=== PATIENT | female | born 1995 | race Native Hawaiian/Other Pacific Islander ===

== ENCOUNTER 2017-09-12 19:02 | Inpatient (IN) | payer MEDICAID ==
[2017-09-12] MEDS ORDERED: LACTATED RINGERS 500 ML IV ONE (20:15)
[2017-09-12] MEDS ORDERED: SUBLIMAZE IV PRN (23:00)
[2017-09-12] MEDS ORDERED: XYLOCAINE 2% INFILTRATI ONE (23:03)
[2017-09-12] MEDS ORDERED: ePHEDrine SULFATE IV PRN (23:03)
[2017-09-12] MEDS ORDERED: NARCAN 0.4 MG/1 ML IV PRN (23:03)
[2017-09-12] MEDS ORDERED: BRETHINE SUB-Q PRN (23:03)
[2017-09-12] MEDS ORDERED: MINERAL OIL PO PRN (23:03)
[2017-09-12] MEDS ORDERED: BRETHINE IVP PRN (23:03)
[2017-09-12] MEDS ORDERED: STADOL IV PRN (23:03)
[2017-09-12] MEDS ORDERED: ZOFRAN IV PRN (23:03)
--- NOTE | 2017-09-12 23:06 | History and Physical Report ---
History of Present Illness Date of examination: 09/12/17 Date of admission: 09/12/17 22:19 Chief complaint: Labor History of present illness: Pt is a 22yo HF EDC 09/14/17; EGA 39 6/7 weeks presents to L&D complaining of RUC's q 3-4 mins. She received care at [facility] since 19 weeks and course has been unremarkable except for STD' s (+GC and + Chlamydia) - treated in . records are available and GBS is negative. 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 Social history: no significant social history, single - Obstetrical History Expected Date of Delivery: 09/14/17 Actual Gestation: 39 Week(s) 6 Day(s) : 1 Medications and Allergies Allergies Allergy/AdvReac Type Severity Reaction Status Date / Time No Known Allergies Allergy Verified 09/12/17 20:17 Review of Systems All systems: negative - Vital Signs Vital signs: Vital Signs Temp Pulse Resp BP 97.4 F L 90 13 117/66 09/12/17 22:52 09/12/17 22:52 09/12/17 22:52 09/12/17 22:52 Temp Pulse Resp BP Pulse Ox 97.4 F L 90 13 117/66 09/12/17 22:52 09/12/17 22:56 09/12/17 22:52 09/12/17 22:56 - Physical Exam Cardiovascular: Regular rate Lungs: Positive: Clear to auscultation Abdomen: Positive: normal appearance, soft Genitourinary (Female): Positive: normal external genitalia Uterus: Positive: enlarged Extremities: Positive: normal - Obstetrical FHR: category 1 Uterine Contraction Monitor Mode: External Cervical Dilatation: 7 Cervical Effacement Percentage: 100 station: -1 Uterine Contraction Pattern: Regular Uterine Tone Measurement Phase: Contraction Uterine Contraction Intensity: Strong/Firm Results Result Diagrams: 09/12/17 23:28 All other labs normal. Assessment and Plan - Patient Problems (1) 39 weeks gestation of Onset Date: 09/13/17 Current Visit: Yes Status: Acute Plan to address problem: A: IUP @ 39 6/7 weeks in labor P: Admit to L&D for expectant vaginal delivery
[2017-09-12 23:44] LABS: Hematocrit 38.6 % (30.3-42.9); Hemoglobin 12.8 gm/dl (10.1-14.3); Mean Corpuscular HGB Conc 33 % (30-34); Mean Corpuscular Hemoglobin 31 pg (28-32); Mean Corpuscular Volume 93 fl (79-97); Platelet Count 198 K/mm3 (140-440); Red Blood Count 4.17 M/mm3 (3.65-5.03); Red Cell Distribution Width 13.7 % (13.2-15.2)
[2017-09-12] MEDS ORDERED: PITOCin/NS 20 UNIT/1000ML DRIP 20 UNITS/1,000 ML BAG IV SCH (23:45)
[2017-09-12] MEDS ORDERED: PITOCin/NS 30 UNIT/500ML 30 UNITS/500 ML BAG IV SCH ×2 (23:45)
[2017-09-12] MEDS ORDERED: LACTATED RINGERS 1,000 ML IV SCH (23:45)
[2017-09-13] MEDS ORDERED: POLYCILLIN/NS 1 GM/50 ML 1 GM/50 ML BAG IV SCH (03:00)
[2017-09-13] MEDS ORDERED: XYLOCAINE 2% INFILTRATI ONE (05:14)
--- NOTE | 2017-09-13 05:34 | Procedure Note ---
OB Delivery Note - Delivery Date of Delivery: 09/13/17 Surgeon: JEANNA ARANDA Estimated blood loss: other (250cc) - Vaginal Delivery presentation: vertex Delivery position: OA Intrapartum events: none Delivery induction: none Delivery augmentation: rupture of membranes Delivery monitor: external FHT, external uterine Route of delivery: Delivery placenta: spontaneous Delivery cord: nuchal cord, 3 umbilical vessels Episiotomy: none Delivery laceration: 2nd degree (perineal laceration) Delivery repair: vicryl Anesthesia: intravenous Delivery comments: delivered OA over intact perineum with narcotic anesthesia, and placed on Mom's chest for [id number] bonding and delayed cord clamping. - A at 1 minute: 8 at 5 minutes: 9 Gender: Male (3322gms)
[2017-09-13] MEDS ORDERED: PHENERGAN PR PRN (05:37)
[2017-09-13] MEDS ORDERED: LANSINOH TP PRN (05:37)
[2017-09-13] MEDS ORDERED: PHENERGAN PO PRN (05:37)
[2017-09-13] MEDS ORDERED: DULCOLAX PR PRN (05:37)
[2017-09-13] MEDS ORDERED: BENADRYL PO PRN (05:37)
[2017-09-13] MEDS ORDERED: ZOFRAN IV PRN (05:37)
[2017-09-13] MEDS ORDERED: MILK OF MAGNESIA PO PRN (05:37)
[2017-09-13] MEDS ORDERED: TYLENOL PO PRN (05:37)
[2017-09-13] MEDS ORDERED: TUCKS PAD TP PRN (05:37)
[2017-09-13] MEDS ORDERED: PITOCin/NS 20 UNIT/1000ML DRIP 20 UNITS/1,000 ML BAG IV SCH (06:00)
[2017-09-13] MEDS ORDERED: SODIUM CHLORIDE FLUSH SYRINGE 10 ML IV PRN (06:00)
[2017-09-13] MEDS: NORCO 5/325 PO PRN (06:57)
[2017-09-13] MEDS ORDERED: DERMOPLAST TP PRN (09:00)
[2017-09-13] MEDS: COLACE PO SCH ×2 (10:25→21:59)
[2017-09-13] MEDS: PRENATAL VITAMIN PO SCH (10:25)
[2017-09-13] MEDS: FEOSOL PO SCH ×2 (10:25→21:59)
[2017-09-13] MEDS: MOTRIN PO SCH ×2 (12:22→17:51)
[2017-09-13 18:32] LABS: Hematocrit 29.5 % (30.3-42.9); Hemoglobin 9.8 gm/dl (10.1-14.3)
[2017-09-14] MEDS: NORCO 5/325 PO PRN ×2 (00:07→22:05)
[2017-09-14] MEDS: MOTRIN PO SCH ×5 (00:07→18:17)
[2017-09-14] MEDS ORDERED: M-M-R II VACCINE SUB-Q ONE (05:37)
[2017-09-14] MEDS ORDERED: BOOSTRIX IM ONE (06:00)
--- NOTE | 2017-09-14 09:53 | Progress Note ---
Assessment and Plan A: PP Day #1 Asymptomatic Anemia P: Follow routine Orders Ferrous Sulfate BID; Continue at home D/C Home today per patient request RTO in 6 weeks Subjective - Subjective Date of service: 09/14/17 Patient reports: appetite normal, voiding normally, pain well controlled, flatus , ambulating normally : doing well Objective - Vital Signs Latest vital signs: Vital Signs Temp Pulse Resp BP BP Pulse Ox 09/14/17 08:00 98.1 F 83 20 128/74 99 09/14/17 00:30 98.6 F 78 16 115/74 09/13/17 19:40 98.6 F 71 18 101/68 Intake and Output 09/13/17 09/14/17 09/14/17 22:59 06:59 14:59 Intake Total 300 300 Output Total 800 Balance -500 300 Intake: Intake, Free Water 300 300 Output: Urine 800 Void 800 Other: Total, Output Amount 500 - Exam Breasts: Present: normal Cardiovascular: Present: Regular rate Lungs: Present: Clear to auscultation, Normal air movement Abdomen: Present: normal appearance, soft, normal bowel sounds Uterus: Present: normal, firm, fundal height below umbilicus Extremities: Present: normal - Labs Labs: Abnormal lab results 09/13/17 Range/Units 18:20 Hgb 9.8 L D (10.1-14.3) gm/dl Hct 29.5 L D (30.3-42.9) %
--- NOTE | 2017-09-14 09:54 | Discharge Summary ---
Providers - Providers Date of Admission: 09/12/17 22:19 Date of discharge: 09/14/17 Attending physician: NICHOLAS ELDRIDGE MD Primary care physician: NICHOLAS ELDRIDGE MD Hospitalization Reason for admission: active labor Delivery: Episiotomy: none Laceration: 2nd degree Incision: normal Other procedures: none complications: none Discharge diagnosis: IUP at term delivered baby: male Condition at discharge: Good Disposition: DC-01 TO HOME OR SELFCARE Plan - Discharge Medications Prescriptions: HYDROcodone/APAP 5-325 [[place] 5/325] 1 each PO Q6HR PRN #10 tablet PRN Reason: Pain Ibuprofen [Motrin] 600 mg PO Q8H PRN #30 tablet PRN Reason: Pain Vit Calc,Iron,Folic [ Vitamins] 1 each PO DAILY #30 tablet - Provider Discharge Summary Activity: routine, no sex for 6 weeks, no heavy lifting 4 weeks, no strenuous exercise Diet: routine Instructions: routine Additional instructions: [] Smoking cessation referral if applicable(refer to patient education folder for contact #) [] Refer to [facility] Booklet Call your doctor immediately for: * Fever > 100.5 * Heavy vaginal bleeding ( >1 pad per hour) * Severe persistent headache * Shortness of breath * Reddened, hot, painful area to leg or breast * Drainage or odor from incision. * Keep incision clean and dry at all times and follow doctor's instructions regarding bathing/showering - Follow up plan Follow up: NICHOLAS ELDRIDGE MD [Primary Care Provider] - 6 Weeks
[2017-09-14] MEDS: COLACE PO SCH ×2 (12:38→22:05)
[2017-09-14] MEDS: FEOSOL PO SCH ×2 (12:38→22:05)
[2017-09-14] MEDS: PRENATAL VITAMIN PO SCH (12:38)
[2017-09-15] MEDS: MOTRIN PO SCH ×2 (00:16→06:13)
[2017-09-15 11:07] VITALS: BP 112/64
== END 2017-09-15 11:30 | disposition home or self-care (01) | DRG 775 ==
LOC: TRG 19:02 → LD 22:19 → OB 09-13 07:48
PROVIDERS: ADMIT Obstetrics & Gynecology; ATTEND Obstetrics & Gynecology
PROC: 10E0XZZ Delivery of Products of Conception, External Approach (ICD-10-PCS; principal; 2017-09-13)
PROC: 0KQM0ZZ Repair Perineum Muscle, Open Approach (ICD-10-PCS; 2017-09-13)
DX: O69.81X0 Labor and delivery complicated by cord around neck, without compression, not applicable or unspecified (principal); Z3A.39 39 weeks gestation of pregnancy; Z37.0 Single live birth; O70.1 Second degree perineal laceration during delivery; O90.81 Anemia of the puerperium; D64.9 Anemia, unspecified
CPT/HCPCS: 36415; 85014; 85018; 85027; 86592; 86850; 86900; 86901; 90707; 99211; A6250; G0463; J0595; J2590; J3010; J7120

== ENCOUNTER 2018-08-07 07:41 | Inpatient (IN) | payer MEDICAID ==
[2018-08-07] MEDS ORDERED: LACTATED RINGERS 1,000 ML ONE (08:22)
[2018-08-07 08:54] LABS: Hematocrit 36.8 % (30.3-42.9); Hemoglobin 12.1 gm/dl (10.1-14.3); Mean Corpuscular HGB Conc 33 % (30-34); Mean Corpuscular Volume 87 fl (79-97); Platelet Count 237 K/mm3 (140-440); Red Blood Count 4.22 M/mm3 (3.65-5.03); Red Cell Distribution Width 15.2 % (13.2-15.2)
[2018-08-07] MEDS ORDERED: SUBLIMAZE IV PRN (09:00)
[2018-08-07] MEDS ORDERED: BRETHINE IVP PRN (09:00)
[2018-08-07] MEDS ORDERED: PITOCin/NS 30 UNIT/500ML 30 UNITS/500 ML BAG IV SCH (09:00)
[2018-08-07] MEDS ORDERED: XYLOCAINE 2% INFILTRATI NR (09:00)
[2018-08-07] MEDS ORDERED: AMPICILLIN/NS 2 GM/100 ML 2 GM/100 ML BAG IV ONE (09:00)
[2018-08-07] MEDS ORDERED: MINERAL OIL PO PRN (09:00)
[2018-08-07] MEDS ORDERED: BRETHINE SUB-Q PRN (09:00)
[2018-08-07] MEDS ORDERED: LACTATED RINGERS 1,000 ML IV SCH (09:00)
[2018-08-07] MEDS: PITOCin/NS 20 UNIT/1000ML DRIP 20 UNITS/1,000 ML BAG IV SCH ×2 (09:35→10:24)
--- NOTE | 2018-08-07 09:51 | Procedure Note ---
OB Delivery Note - Delivery Date of Delivery: 08/07/18 (09:29) Surgeon: MARLON TARIQ (DEBBIE) Estimated blood loss: 200cc - Vaginal Delivery presentation: vertex Delivery position: OA Intrapartum events: none Delivery induction: none Delivery monitor: external FHT, external uterine Route of delivery: (09:29) Delivery placenta: spontaneous (09:35) Delivery cord: nuchal cord (x1 loose), 3 umbilical vessels Episiotomy: none Delivery laceration: none Anesthesia: intravenous Delivery comments: With good pushing efforts, viable female, TAMANNA position, loose nuchal x1 loose, delivered intact via somersault maneuver over intact perineum at 09:29. dried and placed [id number] on mothers abdomen. Strong lusty cry. Delayed cord clamping, then cut by FOB with my guidance. Spontaneous bowen delivery of intact 3VC placenta at 09:35. FF@U-2. Bleeding small. No tears or lacerations. EBL 200cc. Infant and mother left in stable condition in L&D. GBS unknown at time of delivery ( records not available). Tx'd x1. - Infant A at 1 minute: 9 at 5 minutes: 9 Infant Gender: Female (3042 grams, 6lbs 11oz, 19")
--- NOTE | 2018-08-07 10:13 | History and Physical Report ---
History of Present Illness Date of examination: 08/07/18 Date of admission: 08/07/18 08:04 Chief complaint: Intense labor pains History of present illness: 23 yo Fe KEMAR 08/11/2018, 39w3d presents in spontaneous labor. Pt received care with [facility] (records not available; requested). GBS unknown. Pt denies any medical history. 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 denies: smoking, alcohol abuse, prescription drug abuse, IV drug use - Obstetrical History Expected Date of Delivery: 08/11/18 Actual Gestation: 39 Week(s) 3 Day(s) : 2 Para: 1 Hx # Term Pregnancies: 1 Number of Pregnancies: 0 Spontaneous Abortions: 0 Induced : 0 Number of Living Children: 1 Medications and Allergies Allergies Allergy/AdvReac Type Severity Reaction Status Date / Time No Known Allergies Allergy Verified 09/12/17 20:17 Home Medications Medication Instructions Recorded Confirmed Last Taken Type HYDROcodone/APAP 5-325 [[place] 1 each PO Q6HR PRN #10 tablet 09/13/17 Unknown Rx 5/325] Ibuprofen [Motrin] 600 mg PO Q8H PRN #30 tablet 09/13/17 Unknown Rx Vit Calc,Iron,Folic 1 each PO DAILY #30 tablet 09/13/17 Unknown Rx [ Vitamins] Active Meds: Active Medications Ephedrine Sulfate (Ephedrine Sulfate) 10 mg IV Q2M PRN PRN Reason: Hypotension Fentanyl (Sublimaze) 100 mcg IV Q2H PRN PRN Reason: Labor Pain Last Admin: 08/07/18 08:30 Dose: 100 mcg Documented by: Lactated Ringer's (Lactated Ringers) 1,000 mls @ 125 mls/hr IV DIRECT TOYA Last Admin: 08/07/18 08:30 Dose: 125 mls/hr Documented by: Oxytocin/Sodium Chloride (Pitocin/Ns 20 Unit/1000ml Drip) 20 units in 1,000 mls @ 125 mls/hr IV DIRECT TOYA Oxytocin/Sodium Chloride (Pitocin/Ns 30 Unit/500ml) 30 units in 500 mls @ 1 mls/hr IV TITR TOYA; Protocol Lidocaine (Xylocaine 2%) 20 ml INFILTRATI ONCE NR Stop: 08/08/18 08:59 Mineral Oil (Mineral Oil) 30 ml PO QHS PRN PRN Reason: Constipation Terbutaline Sulfate (Brethine) 0.25 mg SUB-Q ONCE PRN PRN Reason: Hyperstimulation/Hypertonicity Terbutaline Sulfate (Brethine) 0.25 mg IVP ONCE PRN PRN Reason: Hyperstimulation/Hypertonicity Review of Systems Cardiovascular: no chest pain, no shortness of breath Respiratory: no shortness of breath Breasts: normal Gastrointestinal: abdominal pain (Contractions), no nausea, no vomiting, no diarrhea, no constipation Genitourinary: normal appearance, vaginal bleeding (normal bloody show), leakage of fluid (Reports [facility] 08/07/2018 @ 6 am, clear fluid), contractions, no genital sores Integumentary: no rash, no sores, no lesions - Vital Signs Vital signs: Vital Signs Pulse BP 82 135/87 08/07/18 07:54 08/07/18 07:54 Temp Pulse Resp BP Pulse Ox 98.0 F 74 19 113/59 96 08/07/18 08:45 08/07/18 10:01 08/07/18 08:45 08/07/18 10:01 08/07/18 09:29 - Physical Exam Breasts: Positive: normal Cardiovascular: Regular rate, Normal S1, Normal S2, No murmurs Lungs: Positive: Clear to auscultation, Normal air movement Abdomen: Positive: normal appearance, soft, normal bowel sounds. Negative: distention Genitourinary (Female): Positive: normal external genitalia, normal perenium Vagina: Positive: normal moisture (Clear fluid noted with exam) Uterus: Positive: enlarged (Gravid) Extremities: Positive: normal Deep Tendon Reflex Grade: Normal +2 - Obstetrical FHR: auscultation normal, category 1 Uterine Contraction Monitor Mode: External Cervical Dilatation: 10 (6 cm on admission per RN) Cervical Effacement Percentage: 100 station: +1 Uterine Contraction Pattern: Regular Uterine Tone Measurement Phase: Resting Uterine Contraction Intensity: Strong/Firm Results Result Diagrams: 08/07/18 08:20 Abnormal lab results 01/15/19 Range/Units 08:20 WBC 11.6 H (4.5-11.0) K/mm3 All other labs normal. Assessment and Plan A: Term IUP @ 39w3d Category 1 tracing GBS unknown (records not available; Requested) Active labor P: Admit to L&D; routine labor orders GBS prophylaxis anticipate
[2018-08-07] MEDS ORDERED: BENADRYL PO PRN (11:42)
[2018-08-07] MEDS ORDERED: DULCOLAX PR PRN (11:42)
[2018-08-07] MEDS ORDERED: LANSINOH TP PRN (11:42)
[2018-08-07] MEDS ORDERED: ZOFRAN IV PRN (11:42)
[2018-08-07] MEDS ORDERED: TUCKS PAD TP PRN (11:42)
[2018-08-07] MEDS ORDERED: MILK OF MAGNESIA PO PRN (11:42)
[2018-08-07] MEDS ORDERED: TYLENOL PO PRN (11:42)
[2018-08-07] MEDS ORDERED: NORCO 5/325 PO PRN (11:42)
[2018-08-07] MEDS ORDERED: PHENERGAN PO PRN (11:42)
[2018-08-07] MEDS ORDERED: SODIUM CHLORIDE FLUSH SYRINGE 10 ML IV NR (12:00)
[2018-08-07] MEDS: IBUPROFEN PO SCH ×3 (12:08→23:28)
[2018-08-08 00:53] LABS: Hematocrit 30.3 % (30.3-42.9); Hemoglobin 10.2 gm/dl (10.1-14.3)
[2018-08-08] MEDS: IBUPROFEN PO SCH ×2 (05:24→12:55)
--- NOTE | 2018-08-08 10:37 | Progress Note ---
Assessment and Plan A: PP Day #1 Stable P: Follow Routine Orders D/C home today per patient request RTO in 6 Weeks Subjective - Subjective Date of service: 08/08/18 Patient reports: appetite normal, voiding normally, pain well controlled, flatus , ambulating normally : doing well, bottle feeding Objective - Vital Signs Latest vital signs: Vital Signs Temp Pulse Resp BP BP Pulse Ox 08/08/18 08:09 98.1 F 90 18 118/76 98 08/08/18 00:00 98.2 F 74 18 105/51 99 08/07/18 20:00 98.2 F 82 18 105/51 99 08/07/18 15:52 98.0 F 77 18 106/52 98 08/07/18 11:10 98.1 F 70 18 113/50 97 08/07/18 10:48 80 122/55 08/07/18 10:45 98.4 F 17 Intake and Output 08/07/18 08/08/18 08/08/18 22:59 06:59 14:59 Intake Total 960 240 Output Total 700 700 Balance 260 -460 Intake: Oral 960 240 Output: Urine 700 700 Void 700 700 Other: Total, Intake Amount 960 240 Total, Output Amount 700 700 # Voids Void 1 - Exam Breasts: Present: normal Cardiovascular: Present: Regular rate Lungs: Present: Clear to auscultation, Normal air movement Abdomen: Present: normal appearance, soft, normal bowel sounds Uterus: Present: normal, firm, fundal height below umbilicus Extremities: Present: normal
--- NOTE | 2018-08-08 10:38 | Discharge Summary ---
Providers - Providers Date of Admission: 08/07/18 08:04 Date of discharge: 08/08/18 Attending physician: CHRISTINE MONTALVO Primary care physician: NICHOLAS ELDRIDGE MD Hospitalization Reason for admission: active labor Delivery: Episiotomy: none Laceration: none Other procedures: none complications: none Discharge diagnosis: IUP at term delivered [place] baby: female Condition at discharge: Good Disposition: DC-01 TO HOME OR SELFCARE Plan - Provider Discharge Summary Activity: routine, no sex for 6 weeks, no heavy lifting 4 weeks, no strenuous exercise Diet: routine Instructions: routine Additional instructions: [] Smoking cessation referral if applicable(refer to patient education folder for contact #) [] Refer to [facility] Booklet Call your doctor immediately for: * Fever > 100.5 * Heavy vaginal bleeding ( >1 pad per hour) * Severe persistent headache * Shortness of breath * Reddened, hot, painful area to leg or breast * Drainage or odor from incision. * Keep incision clean and dry at all times and follow doctor's instructions regarding bathing/showering - Follow up plan Follow up: NICHOLAS ELDRIDGE MD [Primary Care Provider] - 6 Weeks
[2018-08-08 22:41] VITALS: BP 102/78
== END 2018-08-08 22:00 | disposition home or self-care (01) | DRG 775 ==
LOC: TRG 07:41 → LD 08:04 → OB 11:28
PROVIDERS: ADMIT Obstetrics & Gynecology; ATTEND Obstetrics & Gynecology
PROC: 10E0XZZ Delivery of Products of Conception, External Approach (ICD-10-PCS; principal; 2018-08-07)
DX: O69.81X0 Labor and delivery complicated by cord around neck, without compression, not applicable or unspecified (principal); Z3A.39 39 weeks gestation of pregnancy; Z37.0 Single live birth; Z79.899 Other long term (current) drug therapy
CPT/HCPCS: 36415; 85014; 85018; 85027; 86592; 86850; 86900; 86901; G0378; J0290; J2590; J3010; J7120